=== PATIENT | male | born 1950 | race Caucasian/White ===

== ENCOUNTER 2025-01-26 06:00 | Day surgery (SDC) | payer MEDICARE ==
[2025-01-26] MEDS: Lactated Ringers 1,000 ML IV SCH (06:05)
[2025-01-26] MEDS ORDERED: Midazolam 1 MG/ML 2 ML SDV ONE (06:28)
[2025-01-26] MEDS ORDERED: fentaNYL 100 MCG/2 ML SDV ONE (06:28)
[2025-01-26] MEDS ORDERED: propofoL 500 MG/50 ML 50 ML ONE (06:30)
[2025-01-26] MEDS ORDERED: Chloroprocaine 3% 30 MG/ML 20 ML SDV ONE (06:33)
[2025-01-26] MEDS: Acetaminophen 325 MG Tab PO ONE (06:40)
[2025-01-26] MEDS: Pregabalin 25 MG Cap PO ONE (06:40)
[2025-01-26] MEDS: oxyCODONE ER 10 MG TAB.ER PO ONE (06:40)
[2025-01-26] MEDS ORDERED: ceFAZolin 2 GM Vial ONE (07:11)
[2025-01-26] MEDS ORDERED: HYDROmorphone 0.5 MG/0.5 ML Syringe IVPUSH PRN (07:21)
[2025-01-26] MEDS ORDERED: fentaNYL 100 MCG/2 ML SDV IVPUSH PRN (07:21)
[2025-01-26] MEDS ORDERED: Ondansetron 4 MG/2 ML SDV IVPUSH PRN (07:21)
[2025-01-26] MEDS ORDERED: Lactated Ringers 1,000 ML ONE (07:43)
[2025-01-26] MEDS: VANCOmycin 1 GM SDV ONE (08:06)
[2025-01-26] MEDS: Morphine 8 MG, EPINEPHrine 0.3 MG, Cefuroxime 750 MG, Ketorolac 30 MG, Sodium Chloride ... PRN (08:06)
[2025-01-26] MEDS: Tranexamic Acid 1,000 MG/10 ML Vial ONE (08:06)
[2025-01-26] MEDS: oxyCODONE 5 MG Tab PO SCH (09:32)
[2025-01-26] MEDS ORDERED: oxyCODONE 5 MG Tab PO PRN (09:37)
[2025-01-26] MEDS ORDERED: Cyclobenzaprine 10 MG Tab PO PRN (10:04)
== END 2025-01-26 12:30 | disposition home or self-care (01) ==
LOC: JD.SDS 06:00
PROVIDERS: ATTEND Orthopaedic Surgery
DX: M16.12 Unilateral primary osteoarthritis, left hip (principal); I10 Essential (primary) hypertension; F32.A Depression, unspecified; F41.9 Anxiety disorder, unspecified; E78.2 Mixed hyperlipidemia; Z87.891 Personal history of nicotine dependence; Z79.899 Other long term (current) drug therapy
CPT/HCPCS: 0055T; 27130; 73501; 97116; 97161; 97530; A9270; C1713; C1776; J0171; J0690; J0697; J1885; J2250; J2272; J2401; J2704; J3010; J7120; 01214; 99100; J3370